=== PATIENT | female | born 1985 | race Caucasian/White ===

== ENCOUNTER 2018-04-21 02:10 | Inpatient (IN) | payer OTHER ==
[2018-04-21] MEDS ORDERED: METHYLERGONOVINE MALEATE 0.2 MG/ML SOL IM PRN (02:39)
[2018-04-21] MEDS ORDERED: CARBOPROST 250 MCG/ML SOL IM PRN (02:39)
[2018-04-21] MEDS ORDERED: SODIUM CHLORIDE 0.9% FLUSH 10 ML SOL IV PRN (02:39)
[2018-04-21] MEDS ORDERED: MEPIVACAINE HCL 1% MPF 30 ML/VIAL SOL INFIL PRN (02:39)
[2018-04-21] MEDS ORDERED: LACTATED RINGERS 1,000 ML IV PRN (02:39)
[2018-04-21] MEDS ORDERED: OXYTOCIN 10000 MU/ML SOL IM PRN (02:39)
[2018-04-21] MEDS: SODIUM CHLORIDE 0.9% FLUSH 10 ML SOL IV SCH ×3 (02:45→18:35)
[2018-04-21] MEDS ORDERED: SODIUM CHLORIDE 0.9% 1000ML 1,000 ML IV ONE (02:49)
[2018-04-21 03:24] LABS: APPEARANCE,URINE Slightly Cloudy; BILIRUBIN,URINE NEGATIVE (NEGATIVE); COLOR,URINE Yellow; GLUCOSE, URINE (UA) NEGATIVE (NEGATIVE); KETONES,URINE 3+ (NEGATIVE); LEUKOCYTE ESTERASE ,URINE NEGATIVE (NEGATIVE); NITRATE,URINE NEGATIVE (NEGATIVE); OCCULT BLOOD,URINE TRACE INTACT (NEG-TRACE); UROBILINOGEN,URINE 0.2 (0.2-1.0 EU)
[2018-04-21 03:40] LABS: BASOPHILS % (AUTO) 0 % (0-3); EOSINOPHILS % (AUTO) 1 % (0-9); HEMATOCRIT 35 % (35-47); HEMOGLOBIN 11.8 gm/dl (12.0-15.5); LYMPHOCYTES % (AUTO) 6.5 % (10-50); MEAN CORPUSCULAR HGB CONC 33.7 gm/dl (32.0-36.0); MEAN CORPUSCULAR VOLUME 89 fL (81-99); MONOCYTES % (AUTO) 3.6 % (0-12)
[2018-04-21 03:48] LABS: CALCIUM 8.6 mg/dl (8.5-10.1); CARBON DIOXIDE 23.4 mEq/L (21-32); CREATININE 1.15 mg/dl (0.60-1.00); POTASSIUM 3.4 mMol/L (3.5-5.1)
[2018-04-21 03:55] LABS: BACTERIA 2+ (< 1+); CRYSTALS NEGATIVE (0-3 AVE/HPF); RBC,URINE 0-3 (0-3AV/HPF)
[2018-04-21 04:53] LABS: ABO O; ANTIBODY SCREEN Negative; RH TYPE Positive
[2018-04-21] MEDS ORDERED: SODIUM CHLORIDE 0.9% 50 ML 25 ML IV PRN (07:42)
[2018-04-21] MEDS: FENTANYL 100MCG/2ML SOL IV PRN ×2 (07:51→12:13)
[2018-04-21] MEDS ORDERED: VANCOMYCIN HYDROCHLORIDE 500 MG PDS IV ONE ×2 (07:56→19:51)
[2018-04-21] MEDS: VANCOMYCIN HCL 500 MG PDS 1,000 MG in SODIUM CHLORIDE 0.9% 250 ML 250 ML IV SCH ×2 (08:00→20:01)
[2018-04-21] MEDS: SODIUM CHLORIDE 0.9% 1000ML 1,000 ML IV SCH ×2 (10:00→18:00)
[2018-04-21] MEDS ORDERED: TERBUTALINE SULFATE 1 MG/ML SOL SC PRN (11:35)
[2018-04-21] MEDS ORDERED: LACTATED RINGERS 1,000 ML IV SCH (11:45)
[2018-04-21] MEDS ORDERED: OXYTOCIN 10000 MU/ML 20,000 MU in LACTATED RINGERS 1,000 ML IV SCH (11:45)
[2018-04-21] MEDS ORDERED: LACTATED RINGERS 1,000 ML ONE (12:54)
[2018-04-21] MEDS ORDERED: OXYTOCIN 10000 MU/ML SOL ONE (12:54)
[2018-04-21] MEDS ORDERED: DIPHENHYDRAMINE 50 MG/ML SOL IV PRN (14:18)
[2018-04-21] MEDS ORDERED: EPHEDRINE SULFATE 50 MG/ML SOL IV PRN (14:18)
[2018-04-21] MEDS ORDERED: NALOXONE HYDROCHLORIDE 0.4 MG/ML SOL IV PRN (14:18)
[2018-04-21] MEDS ORDERED: NALBUPHINE HCL 20 MG/ML SOL IV PRN (14:18)
[2018-04-21] MEDS ORDERED: FENTANYL 250 MCG/ 5ML SOL ONE (14:24)
[2018-04-21] MEDS ORDERED: ROPIVACAINE HYDROCHLORIDE 5 MG/ML SOL ONE (14:24)
[2018-04-21] MEDS: LACTATED RINGERS 1,000 ML IV SCH (16:00)
[2018-04-21] MEDS ORDERED: ALUMINUM/MAGNESIUM 30 ML SUS PO PRN (21:18)
[2018-04-22] MEDS ORDERED: APAP/HYDROCODONE 325/5 TAB PO PRN (02:00)
[2018-04-22] MEDS ORDERED: BISACODYL 10 MG SUP PR PRN (02:00)
[2018-04-22] MEDS ORDERED: WITCH HAZEL 1 EA PAD TOP PRN (02:00)
[2018-04-22] MEDS ORDERED: BENZOCAINE/MENTHOL 1 SPR TOP PRN (02:00)
[2018-04-22] MEDS ORDERED: METHYLERGONOVINE MALEATE 0.2 MG TAB PO PRN (02:00)
[2018-04-22] MEDS ORDERED: FLEET ENEMA PR PRN (02:00)
[2018-04-22] MEDS ORDERED: TEMAZEPAM 15MG 15 MG CAP PO PRN (02:00)
[2018-04-22] MEDS: IBUPROFEN 600 MG TAB PO PRN ×3 (02:10→20:07)
[2018-04-22 05:41] VITALS: RESP 18
[2018-04-22] MEDS: LACTATED RINGERS 1,000 ML IV SCH (06:20)
[2018-04-22 07:48] LABS: CALCIUM 8.6 mg/dl (8.5-10.1); CARBON DIOXIDE 24.2 mEq/L (21-32); CREATININE 1.04 mg/dl (0.60-1.00); POTASSIUM 3.7 mMol/L (3.5-5.1)
[2018-04-22 07:51] LABS: HEMATOCRIT 32 % (35-47); HEMOGLOBIN 10.7 gm/dl (12.0-15.5); MEAN CORPUSCULAR HGB CONC 33.8 gm/dl (32.0-36.0); MEAN CORPUSCULAR VOLUME 89 fL (81-99)
[2018-04-22 08:21] LABS: BAND NEUTROPHILS % (MANUAL) 4 %; BASOPHILS % (MANUAL) 0 % (0-3); BLAST CELLS% 0; EOSINOPHILS % (MANUAL) 0 % (0-9); LYMPHOCYTES % (MANUAL) 8 % (10-50); METAMYELOCYTES%(MANUAL) 0; MONOCYTES % (MANUAL) 4 % (0-12); MYELOCYTES%(MANUAL) 0; NEUTROPHILS % (MANUAL) 84 % (37-80); PROMYELOCYTES % 0
[2018-04-22] MEDS: SODIUM CHLORIDE 0.9% FLUSH 10 ML SOL IV SCH ×2 (10:04→18:12)
[2018-04-22] MEDS: DOCUSATE SODIUM 100 MG SGL PO SCH ×2 (10:05→20:07)
[2018-04-22] MEDS: FOLIC ACID 1 MG TAB PO SCH (20:07)
[2018-04-22] MEDS: MULTIVITAMIN2 1 EA TAB PO SCH (20:07)
[2018-04-22] MEDS ORDERED: SULFAMETHOXAZOLE/TRIMETHOPRI 800/160 MG ONE (20:08)
[2018-04-22] MEDS: SULFAMETHOXAZOLE/TRIMETHOPRI 800/160 MG PO SCH (20:09)
[2018-04-23] MEDS: SODIUM CHLORIDE 0.9% FLUSH 10 ML SOL IV SCH (05:35)
[2018-04-23 08:18] LABS: BASOPHILS % (AUTO) 1 % (0-3); EOSINOPHILS % (AUTO) 4 % (0-9); HEMATOCRIT 31 % (35-47); HEMOGLOBIN 10.4 gm/dl (12.0-15.5); LYMPHOCYTES % (AUTO) 18.9 % (10-50); MEAN CORPUSCULAR HEMOGLOBIN 30.2 pg (27.0-32.0); MEAN CORPUSCULAR HGB CONC 33.9 gm/dl (32.0-36.0); MEAN CORPUSCULAR VOLUME 89 fL (81-99); MONOCYTES % (AUTO) 4.8 % (0-12); NEUTROPHILS % (AUTO) 71.6 % (37-80)
[2018-04-23 08:27] LABS: CALCIUM 8.7 mg/dl (8.5-10.1); CARBON DIOXIDE 25.1 mEq/L (21-32); CREATININE 0.99 mg/dl (0.60-1.00); POTASSIUM 3.6 mMol/L (3.5-5.1)
[2018-04-23] MEDS ORDERED: SULFAMETHOXAZOLE/TRIMETHOPRI 800/160 MG ONE ×2 (08:29→21:22)
[2018-04-23] MEDS: IBUPROFEN 600 MG TAB PO PRN ×3 (08:31→23:20)
[2018-04-23] MEDS: DOCUSATE SODIUM 100 MG SGL PO SCH ×2 (08:31→21:24)
[2018-04-23] MEDS: SULFAMETHOXAZOLE/TRIMETHOPRI 800/160 MG PO SCH ×2 (08:31→21:24)
[2018-04-23] MEDS: MULTIVITAMIN2 1 EA TAB PO SCH (21:24)
[2018-04-23] MEDS: FOLIC ACID 1 MG TAB PO SCH (21:24)
[2018-04-24 02:48] VITALS: O2SAT 98
[2018-04-24 05:29] VITALS: BP 145/88; PULSE 76; TEMP 97.8
[2018-04-24 07:28] LABS: BASOPHILS % (AUTO) 1 % (0-3); CARBON DIOXIDE 25.6 mEq/L (21-32); CREATININE 1.35 mg/dl (0.60-1.00); EOSINOPHILS % (AUTO) 7 % (0-9); HEMATOCRIT 29 % (35-47); HEMOGLOBIN 9.9 gm/dl (12.0-15.5); LYMPHOCYTES % (AUTO) 18.5 % (10-50); MEAN CORPUSCULAR HEMOGLOBIN 30.1 pg (27.0-32.0); MEAN CORPUSCULAR HGB CONC 33.8 gm/dl (32.0-36.0); MEAN CORPUSCULAR VOLUME 89 fL (81-99); MONOCYTES % (AUTO) 6.3 % (0-12); NEUTROPHILS % (AUTO) 67.3 % (37-80); POTASSIUM 3.5 mMol/L (3.5-5.1)
[2018-04-24] MEDS ORDERED: SULFAMETHOXAZOLE/TRIMETHOPRI 800/160 MG ONE (08:57)
[2018-04-24] MEDS: DOCUSATE SODIUM 100 MG SGL PO SCH (09:01)
[2018-04-24] MEDS: IBUPROFEN 600 MG TAB PO PRN (09:01)
[2018-04-24] MEDS: SULFAMETHOXAZOLE/TRIMETHOPRI 800/160 MG PO SCH (09:01)
== END 2018-04-24 11:05 | disposition home or self-care (01) | DRG 775 ==
LOC: OBSVTOIN 02:10 → OB 02:10
PROVIDERS: ADMIT Family Medicine; ATTEND Family Medicine
PROC: 3E04329 Introduction of Other Anti-infective into Central Vein, Percutaneous Approach (ICD-10-PCS; principal; 2018-04-21)
PROC: 10907ZC Drainage of Amniotic Fluid, Therapeutic from Products of Conception, Via Natural or Artificial Opening (ICD-10-PCS; 2018-04-21)
PROC: 10E0XZZ Delivery of Products of Conception, External Approach (ICD-10-PCS; 2018-04-22)
PROC: 0KQM0ZZ Repair Perineum Muscle, Open Approach (ICD-10-PCS; 2018-04-22)
DX: O80 Encounter for full-term uncomplicated delivery (principal); Z37.0 Single live birth; O99.824 Streptococcus B carrier state complicating childbirth; N20.0 Calculus of kidney; Z3A.39 39 weeks gestation of pregnancy; I10 Essential (primary) hypertension; O12.14 Gestational proteinuria, complicating childbirth
CPT/HCPCS: 36415; 59025; 80048; 81001; 84112; 85007; 85018; 85025; 85027; 86850; 86900; 86901; 87088; 99070; J0670; J2590; J2795; J3010; J3105; J3370; A9270-GY